=== PATIENT | female | born 1990 | race Two or more races ===

== ENCOUNTER 2017-05-13 03:10 | Emergency (ER) | payer OTHER ==
[~2017-05-13] VITALS: Ht 180.3 cm; Wt 76.5 kg
[2017-05-13 03:56] LABS: BASOPHIL COUNT 0.1 K/uL (0-0.1); EOSINOPHIL (%) 8.3 % (0-5); EOSINOPHIL COUNT 0.4 K/uL (0-0.3); HEMATOCRIT 36.7 % (36.0-46.0); IMMATURE GRANULOCYTE (%) 0.2 % (0.0-0.7); INSTRUMENT ABS NEUTROPHIL CT 2.5 K/uL; LYMPHOCYTE COUNT 1.7 K/uL (1.0-2.8); MCH 29.5 PG (29.0-34.0); MCHC 32.4 G/DL (30.0-36.0); MCV 90.8 FL (83-99); MEAN PLAT.VOLUME 9.7 uM^3 (9.5-12.4); MONOCYTE (%) 8.7 % (3-12); MONOCYTE COUNT 0.5 K/uL (0-0.8); NEUTROPHIL (%) 48.5 % (45-76); NEUTROPHIL COUNT 2.5 K/uL (1.8-6.4); PLATELET COUNT 229 K/uL (156-360); RBC DIS.WIDTH-CV 13.1 % (11.8-14.6); RBC DIS.WIDTH-SD 43.8 % (39-53); RED BLOOD COUNT 4.04 M/uL (3.80-5.20); WHITE BLOOD COUNT 5.2 K/uL (4.1-10.2)
[2017-05-13 04:06] LABS: CHLORIDE 109 mEq/L (99-109); POTASSIUM 3.7 mEq/L (3.7-5.4); SODIUM 140 mEq/L (136-147)
[2017-05-13 04:08] LABS: GLUCOSE 90 mg/dL (70-99)
[2017-05-13 04:09] LABS: ANION GAP 7 MEQ/L (2-14)
[2017-05-13 04:10] LABS: TOTAL BILIRUBIN 0.4 mg/dL (0.0-1.0)
[2017-05-13 04:12] LABS: ALKALINE PHOSPHATASE 55 IU/L (3-129); GFR ESTIMATE (CALCULATED) > 59 mL/min/
[2017-05-13 04:13] LABS: UREA NITROGEN (BUN) 11 mg/dL (9-23)
[2017-05-13 04:15] LABS: LIPASE 21 U/L (1.0-51.0)
[2017-05-13 04:22] LABS: QUANTITATIVE HCG < 4.0 MIU/ML
[2017-05-13 04:57] LABS: ADD MIUA? YES; BILIRUBIN NEGATIVE; BLOOD SMALL; COLOR YELLOW ((YELLOW)); GLUCOSE (STRIP) NEGATIVE; KETONES NEGATIVE; LEUKOCYTES NEGATIVE; NITRITE NEGATIVE; PROTEIN (STRIP) NEGATIVE; SPECIFIC GRAVITY 1.015 (1.000-1.030); UROBILINOGEN 0.2 MG/DL (0.2-1.0)
[2017-05-13 05:07] LABS: BACTERIA 1+ /HPF; CALCIUM OXALATE CRYSTALS 1+ /HPF; EPITHELIAL CELLS 1+ /HPF; MUCUS TRACE /LPF; RED BLOOD CELLS 0-5 /HPF (0-5); WHITE BLOOD CELLS 0-5 /HPF (0-5)
[2017-05-13] MEDS ORDERED: PEPCID20 MG PO (06:34)
[2017-05-13] MEDS ORDERED: CARAFATE1 GM PO (06:34)
[2017-05-13 07:15] VITALS: BP 93/74
[2017-05-14] MEDS ORDERED: MAALOX MAXIMUM355 ML PO (03:45)
[2017-05-14] MEDS ORDERED: PRILOSEC20 MG PO (03:45)
[2017-05-14] MEDS ORDERED: ZOFRAN ODT4 MG PO (03:48)
[2017-05-14] MEDS ORDERED: PERCOCET 5/31 TABLET PO (03:48)
== END 2017-05-13 07:18 | disposition home or self-care (01) ==
LOC: EME 03:10
PROVIDERS: Physician Assistant
DX: R10.13 Epigastric pain (principal)
CPT/HCPCS: 80053; 81003; 83690; 84702; 85025; 99281; 99284; J2270

== ENCOUNTER 2017-05-13 22:07 | Emergency (ER) | payer OTHER ==
[~2017-05-13] VITALS: Ht 175.3 cm; Wt 75.7 kg
[~2017-05-13 22:07] MED LIST: CARAFATE1 GM PO; PEPCID20 MG PO
[2017-05-13 23:14] LABS: HEMATOCRIT 36.1 % (36.0-46.0); MCH 29.6 PG (29.0-34.0); MCHC 33.2 G/DL (30.0-36.0); MCV 89.1 FL (83-99); MEAN PLAT.VOLUME 10.7 uM^3 (9.5-12.4); PLATELET COUNT 262 K/uL (156-360); RBC DIS.WIDTH-CV 13.2 % (11.8-14.6); RBC DIS.WIDTH-SD 43.1 % (39-53); RED BLOOD COUNT 4.05 M/uL (3.80-5.20); WHITE BLOOD COUNT 7.9 K/uL (4.1-10.2)
[2017-05-13 23:28] LABS: CHLORIDE 110 mEq/L (99-109); POTASSIUM 3.3 mEq/L (3.7-5.4); SODIUM 140 mEq/L (136-147)
[2017-05-13 23:30] LABS: GLUCOSE 107 mg/dL (70-99)
[2017-05-13 23:31] LABS: ANION GAP 9 MEQ/L (2-14)
[2017-05-13 23:33] LABS: ALKALINE PHOSPHATASE 52 IU/L (3-129)
[2017-05-13 23:34] LABS: GFR ESTIMATE (CALCULATED) > 59 mL/min/
[2017-05-13 23:35] LABS: TOTAL BILIRUBIN 0.5 mg/dL (0.0-1.0); UREA NITROGEN (BUN) 8 mg/dL (9-23)
[2017-05-13 23:46] LABS: QUANTITATIVE HCG < 4.0 MIU/ML
[2017-05-14 00:43] LABS: LIPASE 17 U/L (1.0-51.0)
[2017-05-14] MEDS ORDERED: MAALOX MAXIMUM355 ML PO (03:45)
[2017-05-14] MEDS ORDERED: PRILOSEC20 MG PO (03:45)
[2017-05-14] MEDS ORDERED: PERCOCET 5/31 TABLET PO (03:48)
[2017-05-14] MEDS ORDERED: ZOFRAN ODT4 MG PO (03:48)
[2017-05-14 04:13] VITALS: BP 107/70
[2017-05-14 12:08] LABS: CHLAMYDIA TRACHOMATIS NEGATIVE; NEISSERIA GONORRHOEAE NEGATIVE
== END 2017-05-14 04:17 | disposition home or self-care (01) ==
LOC: EME 22:07
PROVIDERS: Emergency Medicine
DX: K29.70 Gastritis, unspecified, without bleeding (principal); R10.10 Upper abdominal pain, unspecified
CPT/HCPCS: 74177; 80053; 81003; 83690; 84702; 85027; 87210; 87491; 87591; 99281; 99285; J1200; J1630; J2405; J3010; J7030

== ENCOUNTER 2017-05-16 18:21 | Emergency (ER) | payer OTHER ==
[~2017-05-16] VITALS: Ht 180.3 cm; Wt 76.7 kg
[~2017-05-16 18:21] MED LIST changes: +MAALOX MAXIMUM355 ML PO; +PERCOCET 5/31 TABLET PO; +PRILOSEC20 MG PO; +ZOFRAN ODT4 MG PO
[2017-05-16] MEDS ORDERED: TYLENOL WITH C1 EACH PO (19:13)
[2017-05-16 19:32] VITALS: BP 122/72
== END 2017-05-16 19:44 | disposition home or self-care (01) ==
LOC: EME 18:21
DX: N94.6 Dysmenorrhea, unspecified (principal)
CPT/HCPCS: 99281; 99284; J1885